=== PATIENT | female | born 1930 | race Caucasian/White ===

== ENCOUNTER 2016-07-02 21:50 | Inpatient (IN) | payer MEDICARE ==
--- NOTE | ~2016-07-02 | DS ---
Discharge Summary [facility] [address] [facility] [place]. [address] NAME: MANISH BOJORQUEZ : 30 STATUS : ADM Gwendolyn PAT#: [id number] AGE: 85 ADM/REG DATE : 07/02/16 MR#: [id number] REPORT SERV DATE: 07/04/16 DICTATED BY: ALLA HUSAIN DATE: 07/04/16 REPORT STATUS : Draft TRANSCRIBED BY: MODL DATE: 07/04/16 ADMISSION DATE: 07/02/2016 DISCHARGE DATE: 07/04/2016 FINAL HOSPITAL DIAGNOSES: 1. Hyponatremia. 2. Hypertension. 3. Hypothyroidism. 4. Chronic kidney disease. CONSULTATIONS: None. PROCEDURES: CT head done on the showing age-appropriate mild diffuse cerebral involutional changes, no acute CVA or other acute intracranial pathology identified. CURRENT PHYSICAL FINDINGS AND HPI: Please see H and P by Dr. Waterman. In brief, the patient is an 85-year-old female with above medical history, who had recently started a diuretic and presented with complaints of dizziness, shortness of breath, fatigue, and cramps. Vital signs at time of admission, BP was 147/65, temperature was 96.9, and she has had no fever here. LABORATORY DATA: At time of admission, her initial sodium was 123. With IV fluid replacement, she corrected to 130 within a 24-hour period. IV fluids were stopped, and she has maintained a sodium of 130. Her initial creatinine was 1.3. She had a creatinine as low as 1.18, she was 1.35 on date of discharge. TSH was 0.211 with a T4 of 1.5. LFTs were normal. Serum osmolality was 267. BNP was 34. Urinalysis showed large leukocyte esterase, 31 wbc's but rare bacteria. Urine culture is negative to date and patient is asymptomatic. Blood cultures are negative at two days. The patient was admitted. She was started on IV fluids normal saline. Home medications were reviewed. DVT prophylaxis was initiated. She was placed on frequent BMP's as to not over correct her sodium too quickly. I saw her the following morning, her IV fluids were decreased to 125 to 75. Her BMP's were changed to q.4 hours and orders were left to DC supplementation when she reached 130. The patient agreed to stay through the night. Off IV fluids to make sure that she would not be symptomatic from either correction or hyponatremia and to make sure she maintained her sodium off her diuretic, which she did. The following morning, she was asymptomatic and felt stable for discharge. DISPOSITION: She is discharged home. She will hold her diuretic. She will schedule an appointment. FOLLOWUP: With her PCP in approximately 10 days to recheck her blood pressure and assess if she needs a replacement for diuretic and recheck her creatinine and sodium and any other issues she may have. MEDICATIONS: Will be Avapro 150 b.i.d., Xalatan eyedrops, Synthroid 0.112. We did not change her Synthroid dose despite her labs, Crestor 20, calcium, vitamin D, cranberry OTC, Discharge Summary [address] [place]. [address] NAME: MANISH BOJORQUEZ : 30 STATUS : ADM Gwendolyn PAT#: [id number] AGE: 85 ADM/REG DATE : 07/02/16 MR#: [id number] REPORT SERV DATE: 07/04/16 DICTATED BY: ALLA HUSAIN DATE: 07/04/16 REPORT STATUS : Draft TRANSCRIBED BY: MODL DATE: 07/04/16 and Stewart REID/TARIQ Alla Husain M.D. / [id number] CC: Gustavo Travis M.D.
--- NOTE | ~2016-07-02 | HP ---
History And Physical [facility] [address] [facility] [place]. [address] NAME: MANISH BOJORQUEZ : 30 STATUS : ADM Gwendolyn PAT#: [id number] AGE: 85 ADM/REG DATE : 07/02/16 MR#: [id number] REPORT SERV DATE: 07/03/16 DICTATED BY: SANTOSH WALLER DATE: 07/02/16 REPORT STATUS : Draft TRANSCRIBED BY: MODL DATE: 07/02/16 DATE OF ADMISSION: 07/02/2016 POINT OF ENTRY: [facility] Emergency Department. CHIEF COMPLAINT: Shortness of breath, dizziness, and nausea. HISTORY OF PRESENT ILLNESS: Ms. Bojorquez is an 85-year-old female with a history of hypertension, hyperlipidemia, hypothyroidism, as well as chronic kidney stage II to stage III who presents to the emergency department today with a few day history of right hip pain, dizziness, nausea, and shortness of breath. The patient states that she was recently placed on a new medication about a month ago by her primary care physician. Upon review of her medication records, it appears to be triamterene hydrochlorothiazide. She states that beginning this weekend she noted some right hip pain primarily nagging with ambulation described as a catching sensation. The patient also reports that beginning this weekend, she started to complain of shortness of breath, but denies any cough, sputum production, or wheezing. Also reports some nausea, but denies any abdominal pain, vomiting, diarrhea, or constipation. The patient also reports dizziness for the past few days primarily with standing upright as well as with ambulation. She otherwise denies any dizziness at rest, with changes in position and denies any vertigo type changes that she has had this in the past. She denies any recent fevers, night sweats, chills, chest pain, palpitations, cough, sputum production, abdominal pain, vomiting, diarrhea, constipation, dysuria, melena, hematochezia, hemoptysis, or hematemesis. Initial evaluation in the emergency department notable for vital signs that are unremarkable. Chest x-ray was clear. EKG was nonischemic as was her troponin. She does have evidence of hyponatremia with a sodium of 123 which appears to be new. CT scan of the brain was negative. She was started on some IV fluids and admitted to the Hospitalist Service. COMPREHENSIVE REVIEW OF SYSTEM: Otherwise negative unless listed in history of present illness. PREVIOUS MEDICAL HISTORY: 1. Hypertension. 2. Hyperlipidemia. 3. Hypothyroidism. 4. Osteoarthritis. 5. Allergic rhinitis. 6. 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 SURGICAL HISTORY: 1. Rotator cuff. History And Physical [address] [address] NAME: MANISH BOJORQUEZ : 30 STATUS : ADM Gwendolyn PAT#: [id number] AGE: 85 ADM/REG DATE : 07/02/16 MR#: [id number] REPORT SERV DATE: 07/03/16 DICTATED BY: SANTOSH WALLER DATE: 07/02/16 REPORT STATUS : Draft TRANSCRIBED BY: TARIQ DATE: 07/02/16 2. Cholecystectomy. 3. Carpal tunnel. ALLERGIES: CODEINE AND ASPIRIN. HOME MEDICATIONS: 1. Tylenol 325 mg daily p.r.n. 2. Irbesartan 150 mg b.i.d. 3. Xalatan eyedrops 1 drop at bedtime. 4. Levothyroxine 112 mcg daily. 5. Prednisone 10 mg daily. 6. Rosuvastatin 20 mg at bedtime. 7. Maxzide 25 one tab at bedtime. 8. Calcium lzij-mhd-lwntfbx one tab daily. 9. Vitamin D one tab daily. 10.Cranberry ghaq-ojp-exlmtgu one tab daily. SOCIAL HISTORY: Denies any tobacco, alcohol, or illicits. FAMILY MEDICAL HISTORY: Mother with hypertension. Father with suspected thyroid disorder. Siblings with hypothyroidism. LABS AND IMAGIN. White count 8.4, hemoglobin 12.1, hematocrit 35.1, platelets 226. 2. Sodium is 123, potassium 4.6, chloride 94, carbon dioxide 23, BUN 36, creatinine 1.31, glucose is 104, calcium is 9.5, protein is 8.1, albumin is 4.6, bilirubin is 0.9, ALT is 20, AST 21, alkaline phosphatase is 57. 3. Troponin less than 0.02. BNP is 34. 4. Chest x-ray per my review shows no acute cardiopulmonary abnormality. 5. EKG per my review shows normal sinus rhythm with an incomplete right bundle-branch block as well as left axis deviation, but otherwise no evidence of acute ischemia or infarction. 6. CT scan of the brain shows age-appropriate involutional changes. Otherwise, no acute cerebrovascular accident. PHYSICAL EXAMINATION: VITAL SIGNS: Temperature is 96.9 degrees Fahrenheit, pulse is 82, respirations 16, saturating 100% on room air, blood pressure 147/65. GENERAL: The patient is awake, alert, in no acute distress. Resting comfortably. She is a well-developed, well-nourished, elderly female. HEENT: Atraumatic and normocephalic. Moist mucous membranes. Pupils are equal, round, reactive to light and accommodation. Extraocular eye movements are intact. No scleral icterus. NECK: No jugular venous distention. No carotid bruits. CARDIAC: Regular rate and rhythm. No murmurs or gallops. Normal S1, S2. LUNGS: Clear to auscultation bilaterally. No wheezes, rhonchi, or crackles. ABDOMEN: Soft, nontender, nondistended with good bowel sounds. No rebound, guarding, or History And Physical [address] [address] NAME: MANISH BOJORQUEZ : 30 STATUS : ADM Gwendolyn PAT#: [id number] AGE: 85 ADM/REG DATE : 07/02/16 MR#: [id number] REPORT SERV DATE: 07/03/16 DICTATED BY: SANTOSH WALLER DATE: 07/02/16 REPORT STATUS : Draft TRANSCRIBED BY: TARIQ DATE: 07/02/16 rigidity. EXTREMITIES: Warm and well perfused. No cyanosis, clubbing, or edema. SKIN: Warm and dry. PSYCH: Affect appropriate. NEURO: Alert and oriented x3. Cranial nerves 2 through 12 grossly intact. Speech is normal. Gait not assessed. ASSESSMENT AND PLAN: Ms. Bojorquez is an 85-year-old female, who presents with a few day history of dizziness, nausea, shortness of breath, as well as right hip pain. PROBLEM LIST: 1. Hypochloremic hyponatremia. 2. Dizziness. 3. Shortness of breath. 4. Right hip pain. 5. Hypertension. 6. Hypothyroidism. 7. Chronic kidney stage 3. PLAN: 1. Hyponatremia. I suspect this is likely medication related due to her recent starting of Maxzide 25 as well as possible SIADH from her reports of nausea. We will check urinalysis, urine lytes as well as serum osmolalities. We will hold Maxzide 25, provide some gentle IV fluid hydration. Checking q.6 hour BMPs over the first 24 hours to ensure adequate rate of correction. 2. Dizziness. I suspect this may be due to some hyponatremia as mentioned above as she does not appear to be dehydrated but we will hold her Maxzide 25, provide IV fluid hydration, observe for improvement. Also checking orthostatic vital signs. CT scan of the brain, EKG and chest x-ray were unremarkable. 3. Shortness of breath, unclear etiology at this time as chest x-ray is clear. She is saturating well on room air and is clear on exam. We will continue to monitor. 4. Hypertension. Continue patient's home irbesartan but holding Maxzide 25, given hyponatremia. 5. Chronic kidney stage 3. Appears to be within her recent baseline. We will continue to monitor. 6. DVT prophylaxis. Lovenox subcu. CODE STATUS: The patient wishes to be full code. NORA/TARIQ Santosh Waller MD / [id number] History And Physical [address] [address] NAME: MANISH BOJORQUEZ : 30 STATUS : ADM Gwendolyn PAT#: [id number] AGE: 85 ADM/REG DATE : 07/02/16 MR#: [id number] REPORT SERV DATE: 07/03/16 DICTATED BY: SANTOSH WALLER DATE: 07/02/16 REPORT STATUS : Draft TRANSCRIBED BY: TARIQ DATE: 07/02/16 CC: Gustavo Travis M.D.
[2016-07-02 20:48] LABS: BASOPHILS 0.2 %; BASOPHILS ABSOLUTE 0.02 10/3/uL (0.0-0.16); EOSINOPHILS 1.1 %; EOSINOPHILS ABSOLUTE 0.09 10/3/uL (0.0-0.53); ER CBC TAT 0 Hrs 05 Mins; IMMATURE GRANULOCYTES 0.2 %; IMMATURE GRANULOCYTES ABSOLUTE 0.02 10/3/uL (0.0-0.11); LYMPHOCYTES 29.5 %; LYMPHOCYTES ABSOLUTE 2.48 10/3/uL (0.67-4.30); MEAN CORPUSCULAR HEMOGLOB 27.9 pg (26.0-34.0); MEAN CORPUSCULAR VOLUME 80.9 fL (80-100); MEAN PLATELET VOLUME 8.5 fL (9.2-13.0); MONOCYTES 8.1 %; MONOCYTES ABSOLUTE 0.68 10/3/uL (0.21-1.20); NEUTROPHILS 60.9 %; NEUTROPHILS ABSOLUTE 5.12 10/3/uL (2.02-8.40); RBC DISTRIBUTION WIDTH 13.8 % (12.0-16.0); WHITE BLOOD CELLS 8.4 10/3/uL (4.5-10.5)
[2016-07-02 20:50] LABS: HEMATOCRIT 35.1 % (36.0-48.0); HEMOGLOBIN 12.1 g/dL (12.0-16.0); MANUAL DIFF NO %; MEAN CORPUS HGB CONC 34.5 g/dL (32.0-36.0); PLATELET COUNT 226 10/3/uL (150-400); RED CELL COUNT 4.34 10/6/uL (4.0-5.6)
[2016-07-02 21:14] LABS: A/G RATIO 1.3 (0.7-1.9); ALBUMIN 4.6 G/DL (3.5-5.0); ALKALINE PHOSPHATASE 57 U/L (45-117); BUN (BLOOD UREA NITROGEN) 36 MG/DL (6-23); CALCIUM, SERUM 9.5 MG/DL (8.5-10.4); CHLORIDE, SERUM 94 MMOL/L (96-112); CO2 (CARBON DIOXIDE) 23 MMOL/L (24-34); CREATININE 1.31 MG/DL (0.55-1.02); GFR AFRICAN AMERICAN 43 ML/MIN (>=60); GFR NON AFRICAN AMERICAN 37 ML/MIN (>=60); GLOBULIN 3.5 G/DL (2.5-4.1); GLUCOSE, SERUM 104 MG/DL (60-99); POTASSIUM, SERUM 4.6 MMOL/L (3.5-5.3); SGOT(AST) 21 U/L (5-40); SGPT(ALT) 22 U/L (5-65); SODIUM, SERUM 123 MMOL/L (135-148); TOTAL BILIRUBIN 0.9 MG/DL (0-1.2); TOTAL PROTEIN 8.1 G/DL (6.0-8.5)
[2016-07-02 21:50] LABS: TROPONIN I <0.02 NG/ML (<0.05)
[~2016-07-02 21:50] MED LIST: ACET500CAP PO; CRESTOR10 PO; CRESTOR5 MG PO; HCTZ25B PO; LEVOTHYROXIN100 MCG PO; LEVOXYL88 MCG PO; LISINOPRIL; MULTIVIT/MIN PO; NEUR300 PO; OS500+D PO; PREM625 PO; PRILO PO; PRILOSEC40 MG PO; VITAMIN D31000 UNIT PO; ZESTRIL30 MG PO
[2016-07-02] MEDS ORDERED: MAX25 PO (23:33)
[2016-07-02] MEDS ORDERED: P10 PO (23:33)
[2016-07-02] MEDS ORDERED: CRESTOR20 MG PO (23:34)
[2016-07-02] MEDS ORDERED: SYN112 PO (23:34)
[2016-07-02] MEDS ORDERED: AVAP150 PO (23:35)
[2016-07-02] MEDS ORDERED: XALAT OPH (23:35)
[2016-07-02] MEDS ORDERED: CALCIUM OTC PO (23:42)
[2016-07-02] MEDS ORDERED: VITAMIN D OTC PO (23:43)
[2016-07-02] MEDS ORDERED: CRANBERRY OTC PO (23:44)
[2016-07-02] MEDS ORDERED: T PO (23:44)
[2016-07-03 03:28] LABS: MEAN CORPUS HGB CONC 35.6 g/dL (32.0-36.0); MEAN CORPUSCULAR HEMOGLOB 28.5 pg (26.0-34.0); MEAN CORPUSCULAR VOLUME 80.1 fL (80-100); MEAN PLATELET VOLUME 8.5 fL (9.2-13.0); PLATELET COUNT 203 10/3/uL (150-400); RBC DISTRIBUTION WIDTH 13.6 % (12.0-16.0); RED CELL COUNT 3.86 10/6/uL (4.0-5.6); WHITE BLOOD CELLS 7.3 10/3/uL (4.5-10.5)
[2016-07-03 03:31] LABS: HEMATOCRIT 30.9 % (36.0-48.0); MANUAL DIFF YES %
[2016-07-03 04:00] LABS: ALBUMIN 3.7 G/DL (3.5-5.0); BUN (BLOOD UREA NITROGEN) 34 MG/DL (6-23); CHLORIDE, SERUM 97 MMOL/L (96-112); CO2 (CARBON DIOXIDE) 21 MMOL/L (24-34); CREATININE 1.19 MG/DL (0.55-1.02); FREE T4 1.51 NG/DL (0.76-1.46); GFR AFRICAN AMERICAN 48 ML/MIN (>=60); GFR NON AFRICAN AMERICAN 42 ML/MIN (>=60); GLUCOSE, SERUM 109 MG/DL (60-99); POTASSIUM, SERUM 4.5 MMOL/L (3.5-5.3); SODIUM, SERUM 126 MMOL/L (135-148)
[2016-07-03 04:02] LABS: CALCIUM, SERUM 8.3 MG/DL (8.5-10.4); PHOSPHORUS, SERUM 3.3 MG/DL (2.5-4.5); ULTRASENSITIVE TSH 0.211 MCIU/ML (0.358-3.740)
[2016-07-03 05:53] LABS: EOSINOPHILS 1 %; EOSINOPHILS ABSOLUTE (CALC) 0.07 10/3/uL (0.0-0.53); LYMPHOCYTES 26 %; MONOCYTES 5 %; MONOCYTES ABSOLUTE (CALC) 0.37 10/3/uL (0.21-1.20); NEUTROPHILS ABSOLUTE (CALC) 4.96 10/3/uL (2.02-8.40); SEGMENTED NEUTROPHIL (0) 68 %; TOTAL NUCLEATED CELLS 100; TOXIC GRANULATION SLT; VACUOLATED NEUTROPHILES FEW
[2016-07-03 06:56] LABS: ASCORBIC ACID (UR NOT ORDER) NEG (NEG); BILIRUBIN, URINE NEGATIVE (NEG); KETONE, URINE NEGATIVE (NEG); LEUKOCYTE ESTERASE(NOT OR LARGE (NEG); WBC (NOT ORDERED) (RFLEX) 31 (0-5)
[2016-07-03 09:11] LABS: BUN (BLOOD UREA NITROGEN) 31 MG/DL (6-23); CALCIUM, SERUM 9.2 MG/DL (8.5-10.4); CHLORIDE, SERUM 99 MMOL/L (96-112); CO2 (CARBON DIOXIDE) 19 MMOL/L (24-34); CREATININE 1.18 MG/DL (0.55-1.02); GFR AFRICAN AMERICAN 49 ML/MIN (>=60); GFR NON AFRICAN AMERICAN 42 ML/MIN (>=60); GLUCOSE, SERUM 89 MG/DL (60-99); POTASSIUM, SERUM 4.4 MMOL/L (3.5-5.3); SODIUM, SERUM 127 MMOL/L (135-148)
[2016-07-03 16:25] LABS: BUN (BLOOD UREA NITROGEN) 33 MG/DL (6-23); CALCIUM, SERUM 8.4 MG/DL (8.5-10.4); CHLORIDE, SERUM 98 MMOL/L (96-112); CREATININE 1.26 MG/DL (0.55-1.02); GFR AFRICAN AMERICAN 45 ML/MIN (>=60); GFR NON AFRICAN AMERICAN 39 ML/MIN (>=60); GLUCOSE, SERUM 96 MG/DL (60-99); SODIUM, SERUM 129 MMOL/L (135-148)
[2016-07-03 16:27] LABS: CO2 (CARBON DIOXIDE) 23 MMOL/L (24-34)
[2016-07-03 20:27] LABS: BUN (BLOOD UREA NITROGEN) 32 MG/DL (6-23); CALCIUM, SERUM 8.5 MG/DL (8.5-10.4); CHLORIDE, SERUM 100 MMOL/L (96-112); CO2 (CARBON DIOXIDE) 22 MMOL/L (24-34); CREATININE 1.41 MG/DL (0.55-1.02); GFR AFRICAN AMERICAN 39 ML/MIN (>=60); GFR NON AFRICAN AMERICAN 34 ML/MIN (>=60); GLUCOSE, SERUM 110 MG/DL (60-99); POTASSIUM, SERUM 4.9 MMOL/L (3.5-5.3); SODIUM, SERUM 130 MMOL/L (135-148)
[2016-07-04 02:16] LABS: BUN (BLOOD UREA NITROGEN) 35 MG/DL (6-23); CALCIUM, SERUM 8.1 MG/DL (8.5-10.4); CHLORIDE, SERUM 99 MMOL/L (96-112); CO2 (CARBON DIOXIDE) 21 MMOL/L (24-34); CREATININE 1.35 MG/DL (0.55-1.02); GFR AFRICAN AMERICAN 41 ML/MIN (>=60); GFR NON AFRICAN AMERICAN 36 ML/MIN (>=60); GLUCOSE, SERUM 90 MG/DL (60-99); POTASSIUM, SERUM 4.4 MMOL/L (3.5-5.3); SODIUM, SERUM 130 MMOL/L (135-148)
== END 2016-07-04 11:18 | disposition home or self-care (01) | DRG 641 ==
LOC: ER 21:50 → 4SO 22:00
PROVIDERS: Emergency Medicine; Internal Medicine
DX: E87.1 Hypo-osmolality and hyponatremia (principal); N18.3 Chronic kidney disease, stage 3 (moderate); I12.9 Hypertensive chronic kidney disease with stage 1 through stage 4 chronic kidney disease, or unspecified chronic kidney disease; E03.9 Hypothyroidism, unspecified; T50.2X5A Adverse effect of carbonic-anhydrase inhibitors, benzothiadiazides and other diuretics, initial encounter; Y92.009 Unspecified place in unspecified non-institutional (private) residence as the place of occurrence of the external cause; E78.5 Hyperlipidemia, unspecified; M19.90 Unspecified osteoarthritis, unspecified site; J30.9 Allergic rhinitis, unspecified; Z88.5 Allergy status to narcotic agent; Z88.8 Allergy status to other drugs, medicaments and biological substances; Z79.52 Long term (current) use of systemic steroids; E87.8 Other disorders of electrolyte and fluid balance, not elsewhere classified; M25.551 Pain in right hip
CPT/HCPCS: 70450; 71020; 80048; 80053; 80069; 81001; 83880; 83930; 84439; 84443; 84484; 85025; 87040; 87077; 87086; 87186; 93005; 99285; A9270-GY